=== PATIENT | female | born 1940 | race Caucasian/White ===

== ENCOUNTER 2021-05-27 12:16 | Emergency (ER) | payer MEDICARE ==
[~2021-05-27] VITALS: Ht 160 cm; Wt 95.0 kg
[2021-05-27 12:25] VITALS: BP 138/70
[2021-05-27] MEDS ORDERED: LIDOCAINE 1%/EPI 1:100,000 20 ML VIAL. IJ ONE (12:30)
[2021-05-27] MEDS ORDERED: LIDOCAINE 2%/EPI 1:100,000 20 ML VIAL. ONE (12:48)
[2021-05-27] MEDS ORDERED: LIDOCAINE 2%/EPI 1:100,000 20 ML VIAL. IJ ONE (13:00)
--- NOTE | 2021-05-27 13:03 | RAD ---
EXAM: Left tibia and fibula, 2 views. HISTORY: Trauma. Laceration. COMPARISON: None. FINDINGS: 2 views of the left tibia and fibula are obtained. There is no fracture, dislocation or sub luxation. There is no suspicious osseous lesion. There is a soft tissue laceration along the anterior larios. There are small soft tissue calcifications. There is no radiodense foreign body. There is a ti ny plantar spur.. Are obtained IMPRESSION: Laceration along the anterior larios. No foreign body or fracture. Electronically signed by: Suzette Joya MD (05/27/2021 1:01 PM) [id number]
--- NOTE | 2021-05-27 13:50 | PHYS DOC ---
Past History Past Surgical History: Appendectomy, Other Additional Past Surgical Histo: bilateral shoulder replacements. heart valve General Adult EDM: Chief Complaint: MECHANICAL FALL HPI: HPI: 81-year-old female presents with lower leg laceration. The patient was walking and going up a wooden stair when she did not lift her foot pain off and she drug her larios against the stair. She sustained a laceration. Family covered it with a towel and brought her to the emergency room. Patient denies falling to the ground. She has no other complaints this time. Review of Systems: Review of Systems: Constitutional: Denies fever or chills Eyes: Denies change in visual acuity HENT: Denies nasal congestion or sore throat Respiratory: Denies cough or shortness of breath Cardiovascular: Denies chest pain or edema GI: Denies abdominal pain, nausea, vomiting, bloody stools or diarrhea : Denies dysuria Musculoskeletal: Denies back pain or joint pain Integument: Laceration left anterior lower leg Neurologic: Denies headache, focal weakness or sensory changes Endocrine: Denies polyuria or polydipsia Lymphatic: Denies swollen glands Psychiatric: Denies depression or anxiety Current Medications: Current Meds: Current Medications Medications (Trade) Dose Ordered Sig/Boris Start Time Stop Time Status Last Admin Dose Admin Lidocaine/ Epinephrine (Xylocaine 1%-Epi 1:100,000) 20 ml 1X ONCE 05/27/21 12:30 05/27/21 12:31 UNV Lidocaine/ Epinephrine (Xylocaine 2%-Epi 1:100,000) 20 ml 1X ONCE 05/27/21 13:00 05/27/21 13:01 DC Allergies: Allergies: Allergies Coded Allergies Type Severity Reaction Last Updated Verified No Known Drug Allergies 05/27/21 No Physical Exam: PE: Constitutional: Well developed, well nourished, no acute distress, non-toxic appearance. [] HENT: Normocephalic, atraumatic, bilateral external ears normal, oropharynx moist, no oral exudates, nose normal. [] Eyes: PERRLA, EOMI, conjunctiva normal, no discharge. [] Neck: Normal range of motion, no tenderness, supple, no stridor. [] Cardiovascular:Heart rate regular rhythm, no murmur [] Lungs & Thorax: Bilateral breath sounds clear to auscultation [] Abdomen: Bowel sounds normal, soft, no tenderness, no masses, no pulsatile masses. [] Skin: 12 cm curved laceration of the left lower leg. [] Back: No tenderness, no CVA tenderness. [] Extremities: No tenderness, no cyanosis, no clubbing, ROM intact, no edema. [] Neurologic: Alert and oriented X 3, normal motor function, normal sensory function, no focal deficits noted. [] Psychologic: Affect normal, judgement normal, mood normal. [] Current Patient Data: Vital Signs: Vital Signs Date Time Temp Pulse Resp B/P (MAP) Pulse Ox O2 Delivery O2 Flow Rate FiO2 05/27/21 12:25 98.2 92 18 138/70 (92) 96 Room Air EKG: EKG: [] Radiology/Procedures: Radiology/Procedures: [] Heart Score: C/O Chest Pain: N/A Risk Factors: Risk Factors: DM, Current or recent (<one month) smoker, HTN, HLP, family history of CAD, obesity. Risk Scores: Score 0 - 3: 2.5% MACE over next 6 weeks - Discharge Home Score 4 - 6: 20.3% MACE over next 6 weeks - Admit for Clinical Observation Score 7 - 10: 72.7% MACE over next 6 weeks - Early Invasive Strategies Course & Med Decision Making: Course & Med Decision Making Pertinent Labs and Imaging studies reviewed. (See chart for details) [] Dragon Disclaimer: Dragon Disclaimer: This electronic medical record was generated, in whole or in part, using a voice recognition dictation system. Laceration Repair Lac Repair Indication: [] 12 cm curved laceration of the left lower leg. Procedure: I obtained verbal consent from the patient for suture repair of her left lower lip laceration. Wound was anesthetized with 2% lidocaine with epinephrine. A total of 6 cc was used. Once good anesthesia was achieved, the wound was thoroughly irrigated. No foreign bodies. I approximated the wound the best I could with 3-0 Ethilon suture. There were 15 sutures placed. There was reasonable skin approximation. Bleeding was controlled. A clean nonadherent dressing was applied. Tetanus is up-to-date. Total repaired wound length: 12 cm Other Items: None The patient tolerated the procedure well. Complications: Curved, thin skin. Departure Departure: Impression: Primary Impression: Laceration of left lower leg Disposition: HOME / SELF CARE / HOMELESS Condition: IMPROVED Referrals: PCP,ELLA (PCP) Patient Instructions: Laceration Care, Adult, [id number] MICHA COTTON DO May 27, 2021 13:50
== END 2021-05-27 14:00 | disposition home or self-care (01) ==
LOC: ER 12:16
DX: S81.812A Laceration without foreign body, left lower leg, initial encounter (principal); W22.8XXA Striking against or struck by other objects, initial encounter; Y93.01 Activity, walking, marching and hiking; Y92.89 Other specified places as the place of occurrence of the external cause; Y99.8 Other external cause status
CPT/HCPCS: 12004; 73590; 99283